=== PATIENT | female | born 2005 | race Caucasian/White ===

== ENCOUNTER 2023-08-08 08:07 | Day surgery (SDC) | payer BC ==
[2023-08-08 08:25] VITALS: BMI 43.0
[2023-08-08] MEDS ORDERED: BUPIVACAINE HCL/PF 2.5 MG/ML - 30 ML VIAL IJ ONE (08:36)
[2023-08-08] MEDS ORDERED: EPINEPHrine 1:1,000 1,000 MCG/ML ML ONE (08:36)
[2023-08-08] MEDS ORDERED: MIDAZOLAM HCL 2 MG/2 ML SINGLE DOSE VIAL ONE (09:38)
[2023-08-08] MEDS ORDERED: PROPOFOL 20 ML ONE (09:48)
[2023-08-08] MEDS ORDERED: oxyCODONE HCL 5 MG TABLET PO PRN (10:34)
[2023-08-08] MEDS: ACETAMINOPHEN 1000 MG/100 ML BAG IVPB ONE (10:35)
[2023-08-08] MEDS ORDERED: FENTANYL CITRATE/PF 50 MCG/ML VIAL ONE ×2 (10:38→10:50)
[2023-08-08] MEDS ORDERED: LACTATED RINGERS SOLUTION 1,000 ML IV SCH (10:45)
[2023-08-08] MEDS ORDERED: ONDANSETRON 4 MG/2 ML VIAL ONE (10:49)
[2023-08-08] MEDS: ONDANSETRON 4 MG/2 ML VIAL IVPUSH PRN (10:58)
[2023-08-08 11:19] VITALS: TEMP 98.4
[2023-08-08] MEDS: oxyCODONE HCL 5 MG TABLET ONE (11:20)
[2023-08-08 11:42] VITALS: RESP 16
[2023-08-08 12:42] VITALS: BP 130/72; PULSE 106
== END 2023-08-08 12:30 | disposition home or self-care (01) ==
LOC: FASU 08:07
PROVIDERS: ATTEND Orthopaedic Surgery
PROC: 0SBD4ZZ Excision of Left Knee Joint, Percutaneous Endoscopic Approach (ICD-10-PCS; 2023-08-08)
PROC: 0SBD4ZZ Excision of Left Knee Joint, Percutaneous Endoscopic Approach (ICD-10-PCS; principal; 2023-08-08 10:07)
DX: S83.242A Other tear of medial meniscus, current injury, left knee, initial encounter (principal); M65.862 Other synovitis and tenosynovitis, left lower leg; S83.8X2A Sprain of other specified parts of left knee, initial encounter; X58.XXXA Exposure to other specified factors, initial encounter; Y93.9 Activity, unspecified; Y92.9 Unspecified place or not applicable
CPT/HCPCS: 81025; 88304-TC; 94760; J0131